=== PATIENT | female | born 1995 | race Caucasian/White ===

== ENCOUNTER 2017-05-03 12:29 | Inpatient (IN) | payer BC ==
[~2017-05-03] VITALS: Ht 175.3 cm; Wt 62.0 kg
[2017-05-03] MEDS ORDERED: HYDR-3307 PO (13:11)
[2017-05-03] MEDS ORDERED: AMOX1TAB64 PO (13:11)
[2017-05-03] MEDS ORDERED: IBUP800T PO (13:11)
[2017-05-03 13:57] LABS: HCG UR OBC PASS
[2017-05-03] MEDS ORDERED: ONDANSETRON 2MG/ML, 2ML IVPush PRN ×2 (14:30→21:00)
[2017-05-03] MEDS ORDERED: POLYETHYLENE GLYCOL 17 GM PACKET PO PRN (14:30)
[2017-05-03] MEDS ORDERED: PLEASE ENTER HEIGHT AND WEIGHT MC SCH (14:30)
[2017-05-03] MEDS ORDERED: DOCUSATE 100 MG CAPSULE PO PRN (14:30)
[2017-05-03] MEDS ORDERED: BISACODYL 10 MG SUPP PR PRN (14:30)
[2017-05-03 15:42] VITALS: BP 120/75
[2017-05-03] MEDS ORDERED: LACTATED RINGERS 1,000 ML IV SCH (16:03)
[2017-05-03] MEDS: morphine SULFATE 10 MG/ML, 1ML IVPush PRN (16:58)
[2017-05-03] MEDS ORDERED: LIDOCAINE/PF 1.5%-EPI 1:200K, 30ML ONE (19:52)
[2017-05-03] MEDS ORDERED: LIDOCAINE/MPF 2%-EPI 1:200K, 20 ML ONE (19:58)
[2017-05-03] MEDS ORDERED: FENTANYL PF 250 MCG/5ML ONE (20:00)
[2017-05-03] MEDS ORDERED: MIDAZOLAM 1 MG/ML, 2ML ONE (20:00)
[2017-05-03] MEDS ORDERED: OXYMETAZOLINE NASAL SPRAY 0.05%, 15ML ONE (20:00)
[2017-05-03] MEDS ORDERED: SUCCINYLCHOLINE 20 MG/ML, 10ML ONE (20:07)
[2017-05-03] MEDS ORDERED: CEFAZOLIN 1,000 MG ONE (20:07)
[2017-05-03] MEDS ORDERED: DEXAMETHASONE 4 MG/ML, 1ML ONE (20:07)
[2017-05-03] MEDS ORDERED: PROPOFOL 10 MG/ML, 20ML ONE (20:07)
[2017-05-03] MEDS ORDERED: KETOROLAC 30 MG/1 ML ONE (20:07)
[2017-05-03] MEDS ORDERED: GLYCOPYRROLATE 0.2MG/1ML ONE (20:07)
[2017-05-03] MEDS ORDERED: NEOSTIGMINE 1 MG/ML, 10ML ONE (20:07)
[2017-05-03] MEDS ORDERED: ONDANSETRON 2MG/ML, 2ML ONE (20:07)
[2017-05-03] MEDS ORDERED: ROCURONIUM 10 MG/ML ONE (20:07)
[2017-05-03] MEDS ORDERED: LIDOCAINE/PF 1.5%-EPI 1:200K, 30ML INFIL ONE (20:45)
[2017-05-03] MEDS ORDERED: ALBUTEROL/IPRATROPIUM 2.5MG/0.5MG, 3 ML NPPB PRN (21:00)
[2017-05-03] MEDS ORDERED: LABETALOL 5MG/ML, 20ML IV PRN (21:00)
[2017-05-03] MEDS ORDERED: PROMETHAZINE 25 MG/ML, 1ML IV PRN (21:00)
[2017-05-03] MEDS ORDERED: ACETAMINOPHEN 325 MG TABLET PO PRN (21:00)
[2017-05-03] MEDS ORDERED: MIDAZOLAM 1 MG/ML, 2ML IV PRN (21:00)
[2017-05-03] MEDS ORDERED: hydrALAzine 20 MG/ML, 1ML IV PRN (21:00)
[2017-05-03] MEDS ORDERED: MEPERIDINE/PF 25MG/0.5ML IVPush PRN (21:00)
[2017-05-03] MEDS ORDERED: OXYcodone 5 MG/5 ML ORAL.SOL UDC PO PRN (21:00)
[2017-05-03] MEDS ORDERED: BUPIVACAINE/PF-EPI 0.5% 1:200K ONE (21:15)
[2017-05-03] MEDS ORDERED: BUPIVACAINE/PF-EPI 0.5% 1:200K INFIL ONE (21:17)
[2017-05-03] MEDS ORDERED: HYDROmorphone 1 MG/ML, 1ML ONE (21:38)
[2017-05-03] MEDS ORDERED: FENTANYL PF 100 MCG/2ML ONE (21:38)
[2017-05-03] MEDS ORDERED: MEPERIDINE/PF 25MG/0.5ML ONE (21:39)
[2017-05-03] MEDS: FENTANYL PF 100 MCG/2ML IV PRN ×2 (21:42→21:49)
[2017-05-03] MEDS: HYDROmorphone 1 MG/ML, 1ML IV PRN ×2 (21:58→22:19)
[2017-05-03 22:50] VITALS: BP 113/57
[2017-05-03] MEDS ORDERED: DEXAMETHASONE 4 MG TABLET PO SCH (23:00)
[2017-05-04 01:06] VITALS: BP 121/58
[2017-05-04] MEDS: DEXAMETHASONE 4 MG/ML, 1ML IVPush SCH ×2 (02:33→09:50)
[2017-05-04] MEDS: LACTATED RINGERS 1,000 ML IV SCH ×2 (02:35→08:19)
[2017-05-04 04:02] VITALS: BP 111/56
[2017-05-04 05:51] LABS: BLOOD UREA NITROGEN 9 mg/dL (7-18)
[2017-05-04 07:10] VITALS: BP 112/59
[2017-05-04 13:33] VITALS: BP 114/70
[2017-05-04] MEDS ORDERED: LACT1POW9 PO (14:08)
[2017-05-04] MEDS ORDERED: IBUP200T48 PO (14:09)
[2017-05-04] MEDS ORDERED: HYDR-3144 PO (14:09)
[2017-05-04] MEDS ORDERED: ONDA4TAB13 SL (14:10)
[2017-05-04] MEDS: morphine SULFATE 10 MG/ML, 1ML IVPush PRN (15:00)
== END 2017-05-04 11:45 | disposition home or self-care (01) | DRG 130 ==
LOC: OUT 12:29 → ORIP 14:07 → 4NOR 16:43
PROVIDERS: ADMIT Dentist; ATTEND Dentist
PROC: 0CTX0Z0 Resection of Lower Tooth, Single, Open Approach (ICD-10-PCS; 2017-05-03)
PROC: 0CTW0Z1 Resection of Upper Tooth, Multiple, Open Approach (ICD-10-PCS; 2017-05-03)
PROC: 0NBV0ZZ Excision of Left Mandible, Open Approach (ICD-10-PCS; principal; 2017-05-03 20:00)
DX: M27.40 Unspecified cyst of jaw (principal); M27.2 Inflammatory conditions of jaws; K01.1 Impacted teeth; D64.9 Anemia, unspecified; Z80.42 Family history of malignant neoplasm of prostate; Z80.3 Family history of malignant neoplasm of breast
CPT/HCPCS: 36415; 80048; 81025; 85025; 87040; 87070; 87075; 87205; 88304; J0690; J1100; J1170; J1885; J2175; J2250; J2405; J2704; J2710; J3010; J3490; J0330; J2270; J7120